=== PATIENT | female | born 1960 | race African-American/Black ===

== ENCOUNTER 2020-12-25 16:45 | Emergency (ER) | payer OTHER ==
[~2020-12-25] VITALS: Ht 170.2 cm; Wt 99.8 kg
[2020-12-25 16:48] VITALS: BP 151/80
[2020-12-25] MEDS ORDERED: PREDNISONE 10 M10 M1 PO (17:59)
[2020-12-25] MEDS ORDERED: VALIUM2 MG PO (17:59)
[2020-12-25] MEDS ORDERED: FLEXERIL PO (17:59)
== END 2020-12-25 18:02 | disposition home or self-care (01) ==
LOC: ER 16:45
DX: M25.551 Pain in right hip (principal); M25.552 Pain in left hip; I10 Essential (primary) hypertension; F17.210 Nicotine dependence, cigarettes, uncomplicated

== ENCOUNTER → 2021-02-23 | Outpatient (CLI) | payer OTHER ==
[~2021-02-23] MED LIST: FLEXERIL PO; PREDNISONE 10 M10 M1 PO; VALIUM2 MG PO
== END ==
LOC: SJCVCIMAG 13:38
PROVIDERS: ATTEND Podiatrist Foot & Ankle Surgery
DX: I70.221 Atherosclerosis of native arteries of extremities with rest pain, right leg (principal); L97.919 Non-pressure chronic ulcer of unspecified part of right lower leg with unspecified severity